=== PATIENT | male | born 1970 | race Caucasian/White ===

== ENCOUNTER 2016-11-01 23:46 | Emergency (ER) | payer OTHER ==
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
[2016-11-02] MEDS ORDERED: IBUPROFEN 600 MG TABLET PO ONE (00:50)
[2016-11-02 01:46] VITALS: BP 127/68
== END 2016-11-02 01:42 | disposition home or self-care (01) ==
LOC: ER 23:46
DX: S79.912A Unspecified injury of left hip, initial encounter (principal); V03.10XA Pedestrian on foot injured in collision with car, pick-up truck or van in traffic accident, initial encounter; Y92.410 Unspecified street and highway as the place of occurrence of the external cause
CPT/HCPCS: 72170; 99284